=== PATIENT | male | born 1980 | race African-American/Black ===

== ENCOUNTER 2019-01-14 10:00 | Emergency (ER) | payer MEDICAID, OTHER ==
[~2019-01-14] VITALS: Ht 172.7 cm; Wt 91.0 kg
[2019-01-14] MEDS ORDERED: HYDROCODONE/ACETAMINOPHEN 5/325MG TABLET PO ONE (10:30)
[2019-01-14 11:43] VITALS: BP 119/61
== END 2019-01-14 11:44 | disposition home or self-care (01) ==
LOC: ER 10:00
DX: K40.90 Unilateral inguinal hernia, without obstruction or gangrene, not specified as recurrent (principal); R05 Cough; Z98.890 Other specified postprocedural states
CPT/HCPCS: 99283

== ENCOUNTER 2022-02-09 14:23 | Emergency (ER) | payer MEDICAID ==
[~2022-02-09] VITALS: Ht 165.1 cm; Wt 75.0 kg
[2022-02-09 14:52] VITALS: BP 124/83
== END 2022-02-09 16:31 | disposition left against medical advice (07) ==
LOC: ER 14:23
DX: Z53.21 Procedure and treatment not carried out due to patient leaving prior to being seen by health care provider (principal)